=== PATIENT | male | born 1995 | race Hispanic/Latino ===

== ENCOUNTER 2017-09-23 09:24 | Outpatient (CLI) | payer BC ==
--- NOTE | 2017-09-23 12:04 | CT ---
CT LUMBAR SPINE WITHOUT CONTRAST: INDICATION: Low back pain for 4 years with history of injury. The patient is experiencing some lumbar radiculopa thy. COMPARISON: None. FINDINGS: The visualized retroperitoneum and paravertebral soft tissues are normal-appearing. No acute fractur e or subluxation is evident. There are some mild degenerative changes seen involving both SI joints. There is a left paracentral disk protrusion at L5-S1 causing mild to moderate narrowing of the left l ateral recess with contract of the traversing left S1 nerve root on image 67 of series 3. This is dwyer perimposed on a broad-based bulge with facet joint hypertrophy inducing mild bilateral neural foramin al narrowing. At L4-5, there is a mild broad-based bulge that encroaches upon the neural foramina. At L3-4, there is a mild broad-based bulge. At L2-3, there is no appreciable osseous central canal or neural foraminal narrowing. At L1-L2, there is no appreciable osseous central canal or neural foraminal narrowing. At T12-L1, there is no appreciable osseous central canal or neural foraminal narrowing. IMPRESSION: 1. Left paracentral protrusion at L5-S1 causing contact to the traversing left S1 nerve root in the lateral recess. 2. Mild bilateral neural foraminal narrowing at L5-S1. 3. 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 POS: SKYLER
== END 2017-09-23 09:25 | disposition home or self-care (01) ==
LOC: TBSIIMAG 09:24
PROVIDERS: ATTEND Neurological Surgery
DX: M51.17 Intervertebral disc disorders with radiculopathy, lumbosacral region (principal); M99.83 Other biomechanical lesions of lumbar region; M53.3 Sacrococcygeal disorders, not elsewhere classified
CPT/HCPCS: 72131